=== PATIENT | female | born 1975 | race Native Hawaiian/Other Pacific Islander ===

== ENCOUNTER 2019-07-06 12:31 | Emergency (ER) | payer BC ==
[~2019-07-06] VITALS: Ht 165.1 cm; Wt 97.5 kg
[2019-07-06 13:34] LABS: PLATELET COUNT 161 K/uL (152-353)
[2019-07-06 14:12] LABS: POTASSIUM 4.5 mmol/L (3.6-5.2)
[2019-07-06 15:25] VITALS: BP 126/89; TEMP 97.9
== END 2019-07-06 15:25 | disposition home or self-care (01) ==
LOC: ED 12:31
PROVIDERS: Family Medicine
DX: G43.909 Migraine, unspecified, not intractable, without status migrainosus (principal); R11.2 Nausea with vomiting, unspecified; E86.0 Dehydration
CPT/HCPCS: 36415; 80053; 81000; 85027; 96360; 96361; 96372; 96374; 96375; 99284; J1885; J2405; J3030